=== PATIENT | female | born 1955 | race Caucasian/White ===

== ENCOUNTER → 2022-02-09 09:59 | Outpatient (BNVA) | payer MEDICARE, SELFPAY | PROVIDERS: PCP Family Medicine; Referring Provider Family Medicine; Visit Provider Anesthesiology Pain Medicine | DX: M51.16 Intervertebral disc disorders with radiculopathy, lumbar region (principal); M47.816 Spondylosis without myelopathy or radiculopathy, lumbar region; M79.604 Pain in right leg; M79.605 Pain in left leg; Z87.891 Personal history of nicotine dependence | CPT/HCPCS: 99204 ==

== ENCOUNTER → 2022-03-26 14:18 | Outpatient (BNVA) | payer MEDICARE, SELFPAY | PROVIDERS: PCP Family Medicine; Visit Provider Anesthesiology Pain Medicine | DX: M54.16 Radiculopathy, lumbar region (principal); Z87.891 Personal history of nicotine dependence | CPT/HCPCS: 64483; 64484; J1100; J3490 ==

== ENCOUNTER → 2022-04-15 09:05 | Outpatient (BNVA) | payer MEDICARE, SELFPAY | PROVIDERS: PCP Family Medicine; Visit Provider Anesthesiology Pain Medicine | DX: M47.816 Spondylosis without myelopathy or radiculopathy, lumbar region (principal); M51.16 Intervertebral disc disorders with radiculopathy, lumbar region; M79.604 Pain in right leg; M79.605 Pain in left leg; Z87.891 Personal history of nicotine dependence | CPT/HCPCS: 99213; 99214 ==

== ENCOUNTER → 2022-04-30 13:23 | Outpatient (BNVA) | payer MEDICARE, SELFPAY | PROVIDERS: PCP Family Medicine; Visit Provider Anesthesiology Pain Medicine | DX: Z87.891 Personal history of nicotine dependence (principal); M54.16 Radiculopathy, lumbar region | CPT/HCPCS: 64483; 64484; J1100; J3490 ==

== ENCOUNTER → 2022-08-12 13:19 | Outpatient (BNVA) | payer MEDICARE, SELFPAY | PROVIDERS: PCP Family Medicine; Visit Provider Anesthesiology Pain Medicine | DX: M47.816 Spondylosis without myelopathy or radiculopathy, lumbar region (principal); M51.16 Intervertebral disc disorders with radiculopathy, lumbar region; M79.604 Pain in right leg; M79.605 Pain in left leg; Z87.891 Personal history of nicotine dependence | CPT/HCPCS: 99214 ==

== ENCOUNTER → 2022-08-20 13:01 | Outpatient (BNVA) | payer MEDICARE, SELFPAY | PROVIDERS: PCP Family Medicine; Visit Provider Anesthesiology Pain Medicine | DX: M47.816 Spondylosis without myelopathy or radiculopathy, lumbar region (principal); Z87.891 Personal history of nicotine dependence | CPT/HCPCS: 64493; 64494; 64495; J3490 ==

== ENCOUNTER → 2022-09-10 13:42 | Outpatient (BNVA) | payer MEDICARE, SELFPAY | PROVIDERS: PCP Family Medicine; Visit Provider Anesthesiology Pain Medicine | DX: M47.816 Spondylosis without myelopathy or radiculopathy, lumbar region (principal); M51.16 Intervertebral disc disorders with radiculopathy, lumbar region; M79.604 Pain in right leg; M79.605 Pain in left leg | CPT/HCPCS: 99214 ==

== ENCOUNTER → 2022-09-15 12:45 | Outpatient (BNVA) | payer MEDICARE, SELFPAY | PROVIDERS: PCP Family Medicine; Visit Provider Anesthesiology Pain Medicine | DX: M47.816 Spondylosis without myelopathy or radiculopathy, lumbar region (principal) | CPT/HCPCS: 64635; 64636; J1030 ==

== ENCOUNTER → 2022-10-26 09:44 | Outpatient (BNVA) | payer MEDICARE, SELFPAY | PROVIDERS: PCP Family Medicine; Visit Provider Anesthesiology Pain Medicine | DX: M25.551 Pain in right hip (principal); M47.816 Spondylosis without myelopathy or radiculopathy, lumbar region; M51.16 Intervertebral disc disorders with radiculopathy, lumbar region | CPT/HCPCS: 73502; 99214 ==

== ENCOUNTER → 2022-11-26 08:58 | Outpatient (BNVA) | payer MEDICARE, SELFPAY | PROVIDERS: PCP Family Medicine; Visit Provider Anesthesiology Pain Medicine | DX: M16.0 Bilateral primary osteoarthritis of hip (principal); M47.816 Spondylosis without myelopathy or radiculopathy, lumbar region; M51.16 Intervertebral disc disorders with radiculopathy, lumbar region | CPT/HCPCS: 99214 ==

== ENCOUNTER → 2022-12-10 13:32 | Outpatient (BNVA) | payer MEDICARE, SELFPAY | PROVIDERS: PCP Family Medicine; Visit Provider Anesthesiology Pain Medicine | DX: M16.11 Unilateral primary osteoarthritis, right hip (principal); M54.9 Dorsalgia, unspecified | CPT/HCPCS: 20610; 77002; J1030; J3490 ==

== ENCOUNTER → 2022-12-30 10:36 | Outpatient (BNVA) | payer MEDICARE, SELFPAY | PROVIDERS: PCP Family Medicine; Referring Provider Anesthesiology Pain Medicine; Visit Provider Orthopaedic Surgery | DX: M16.11 Unilateral primary osteoarthritis, right hip (principal) | CPT/HCPCS: 99024 ==

== ENCOUNTER 2023-01-22 13:47 | Outpatient (CLI) | payer MEDICARE, SELFPAY | END 2023-01-22 13:48 | disposition home or self-care (01) | LOC: RT 02-10 13:49 | PROVIDERS: PCP Family Medicine; Visit Provider Orthopaedic Surgery | DX: Z01.818 Encounter for other preprocedural examination (principal) | CPT/HCPCS: 93005 ==

== ENCOUNTER → 2023-01-28 10:52 | Outpatient (BNVA) | payer MEDICARE, SELFPAY | PROVIDERS: PCP Family Medicine; Visit Provider Anesthesiology Pain Medicine | DX: Z01.818 Encounter for other preprocedural examination (principal); I44.4 Left anterior fascicular block; Z87.891 Personal history of nicotine dependence; M16.11 Unilateral primary osteoarthritis, right hip; M47.816 Spondylosis without myelopathy or radiculopathy, lumbar region; M51.16 Intervertebral disc disorders with radiculopathy, lumbar region | CPT/HCPCS: 99204; 99212 ==

== ENCOUNTER 2023-02-01 10:56 | Observation (INO) | payer MEDICARE, SELFPAY ==
--- NOTE | 2023-01-22 13:12 | ANES.PREANE2 ---
Pre-Anesthetic Assessment Height/Weight: Height 1.55 m Weight 78.925 kg Operation Date: 02/01/23 13:35 Proposed Procedures p right total hip arthroplasty/ 26232,M16.11(Right) - Hardik Garcias MD Familial anesthetic complications: None Social No alcohol and No tobacco Exam alert, oriented x 3, clear to auscultation bilaterally and regular rate & rhythm Airway Mallampati: Class II Dentition: other (bridge) CV/HEM Atrial Fibrillation (No longer on any medications for it (taken off over a year ago)) GI Hx colostomy d/t work accident Anesthetic Plan ASA status: 3 Risk of > 500 ml blood loss (7ml/kg in children): No Medications/Allergies Home Medications Medication Instructions Recorded Confirmed Last Taken Type acetaminophen 500 mg tablet 500 mg PO Q6H PRN Pain 02/09/22 01/22/23 01/21/23 History (Tylenol Extra Strength) baclofen 10 mg tablet 10 mg PO BID PRN spasm #60 tabs 04/30/22 01/22/23 Unknown Rx Allergies Allergy/AdvReac Type Severity Reaction Status Date / Time ciprofloxacin Allergy Severe ALGY-Anaphy Verified 01/22/23 12:55 laxis meperidine [From Demerol] Allergy Intermediate ADR-Nausea Verified 01/22/23 12:55 PFSH Anesthesia Family History Denies family history of CAD (coronary artery disease) Anesthesia complication Bleeding disorder Social History Smoking and tobacco status: former smoker Second hand smoke exposure: No Alcohol intake: never Substance/Drug Use: never Data Anesthesia Cardiac Studies: No Data to Display
--- NOTE | 2023-01-22 13:33 | ECG_ITS ---
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 Measurements Intervals [place] Rate: 92 P: 46 MT: 125 QRS: -65 QRSD: 113 T: 42 QT: 380 QTc: 472 Interpretive Statements SINUS RHYTHM PATTERN CONSISTENT WITH PULMONARY DISEASE LEFT ANTERIOR FASCICULAR BLOCK [QRS AXIS <= -45, QR IN I, RS IN II] VOLTAGE CRITERIA FOR LVH [MEETS CRITERIA IN ONE OF: R(aVL), S(V1), R(V5), R(V5/V6)+S(V1)] POSSIBLE SEPTAL MYOCARDIAL INFARCTION [30 ms Q WAVE IN V1/V2], OF INDETERMINATE AGE INTERPRETATION BASED ON A DEFAULT AGE OF 40 YEARS No previous ECG available for comparison Electronically Signed On 01-23-2023 10:06:14 CDT by Bang Moreno M.D. [id number]
[2023-01-22 13:42] LABS: Basophils % 0.4 %; Eosinophils # 0.1 10^3/uL (0.0-0.8); Eosinophils % 1.8 %; Hematocrit 42.2 % (37.0-47.0); Hemoglobin 13.6 g/dL (11.5-15.3); Lymphocytes # 2.2 10^3/uL (0.8-4.8); Lymphocytes % 40.3 %; Mean Corpuscular HGB Conc 32.2 g/dL (30.0-36.0); Mean Corpuscular Hemoglobin 31.6 pg (28.0-34.0); Mean Corpuscular Volume 97.9 fl (81-99); Mean Platelet Volume 9.3 fL (7.4-10.4); Monocytes # 0.5 10^3/uL (0.2-0.9); Monocytes % 9.8 %; Neutrophils # 2.61 10^3/uL (1.8-7.7); Neutrophils % 47.3 %; Nucleated Red Blood Cells % 0 %; Platelet Count 374 10^3/cmm (130-400); Red Blood Count 4.31 10^6/uL (4.1-5.3); Red Cell Distribution Width 12.9 % (12.1-15.1); White Blood Count 5.5 10^3/uL (4.0-10.0)
[2023-01-22 14:00] LABS: Alanine Aminotransferase 18 U/L (0-33); Albumin Level 4.1 g/dL (3.5-5.2); Alkaline Phosphatase 90 U/L (35-105); Anion Gap 14.1 (5-19); Aspartate Amino Transferase 18 U/L (0-32); Blood Urea Nitrogen 11 mg/dL (8-23); Calcium 8.3 mg/dL (8.5-10.5); Carbon Dioxide 23 mmol/L (22-29); Chloride 109 mmol/L (98-107); Globulin 3.7 g/dL (1.3-4.6); Glomerular Filtration Rate 99.1 mL/min (90-130); Glucose 89 mg/dL (65-115); Osmolality Calculated 293 mOsm/kg (285-295); Potassium 4.1 mmol/L (3.5-5.1); Sodium 142 mmol/L (136-145); Total Bilirubin 0.4 mg/dL (0.15-1.2); Total Protein 7.8 g/dL (6.6-8.7)
[2023-01-22 14:05] LABS: Add Urine Microscopic? YES; Bilirubin Urine Neg (Negative); Blood Urine 2+ (Negative); Glucose Urine UA Norm (Normal); Ketones Urine 1+ (Negative); Leukocyte Esterase Urine Negative (Negative); Nitrate Urine Negative (Negative); Protein Urine Neg (Negative); Urine Appearance SL Hazy (CLEAR); Urine Color Yellow (Yellow); Urobilinogen Urine 1 mg/dL (Negative); pH Urine 5 (5-7)
[2023-01-22 15:05] LABS: Add Urine Culture? No; Bacteria Urine 1+ /hpf; Mucus Urine 2+ /hpf; RBC Urine 0-4 /hpf (0-2); WBC Urine 0-4 /hpf (0-5)
[2023-02-01] VITALS (22 sets, daily range): BP systolic 120–169; BP diastolic 47–82; PULSE 59–95; RESP 16–18; TEMP 36.1–37.1; O2SAT 94–100; BMI 33.2
[2023-02-01] MEDS: sodium chloride 0.9% 1,000 ML 30 ML IV (07:57)
[2023-02-01] MEDS: gabapentin 300 mg Capsule PO ×2 (07:57→17:33)
[2023-02-01] MEDS: CELEcoxib 200 mg Capsule 400 MG PO (07:57)
[2023-02-01] MEDS: oxyCODONE 20 mg ER (12 HR) Tablet PO (07:57)
[2023-02-01] MEDS: acetaminophen 500 mg Tablet 1000 MG PO ×3 (07:58→22:50)
--- NOTE | 2023-02-01 08:23 | P.ANESUD_ITS ---
Pre-Anesthetic Update Pre-Anesthetic Assessment: Date of Surgery/Procedure: 02/01/23 Proposed Procedure: Operation Date: 02/01/23 09:35 Proposed Procedures p right total hip arthroplasty/ 29032,M16.11(Right) - Hardik Garcias MD Any changes to Pre-Anesthetic Assessment?: No Changes from Pre-Anesthetic Assessment: cardiology clearance received Last Intake: Intake Last Liquid Date 01/31/23 Last Liquid Time 19:00 Last Solid Date 01/31/23 Last Solid Time 19:00 Vitals: Temperature 97.5 F L 02/01/23 07:46 Temperature Source Temporal Artery S can 02/01/23 07:46 Pulse Rate 64 02/01/23 07:46 Respiratory Rate 18 02/01/23 07:57 Blood Pressure 169/82 02/01/23 07:46 Blood Pressure Kandace n 111 02/01/23 07:46 Pulse Oximetry 100 02/01/23 07:46 Oxygen Delivery Me thod Room Air 02/01/23 07:47 Exam: Pre-Anes Outpt Exam: alert, oriented x 3, clear to auscultation bila terally and regular rate & rhythm Cardiac Studies: No Data to Display
--- NOTE | 2023-02-01 09:13 | P.HP_ITS ---
Same Day Surgery H&P Indication for Procedure/HPI DATE OF PROCEDURE: February 01, 2023 CHIEF COMPLAINT/INDICATIONFOR SURGICAL PROCEDURE: Arthritis right hip here for right total hip arthroplasty PREOP DIAGNOSIS: Osteoarthritis right hip PLANNED PROCEDURE: Operation Date: 02/01/23 09:35 Proposed Procedures p right total hip arthroplasty/ 62946,M16.11(Right) - Hardik Garcias MD The patient is a 67-year-old female here for elective right total hip arthroplasty. She has pain with prolonged standing and walking. She has pain with bending over as well.? She states it is impossible to walk to a large grocery store.? She relies on a motorized cart while shopping..? Describes pain at night.? She did have a cortisone injection with Dr. Paris in her hip joint, which did not give her any mcfp relief, however pain free for up to 2 days.? She has tried medications including acetaminophen ibuprofen tramadol and hydrocodone without lasting improvement.? She describes history of lumbar surgery years ago and did well with that. Medications/Allergies* Home Medications Medication Instructions Recorded Confirmed Type No Known Home Medications 01/26/23 01/28/23 History Allergies/Adverse Reactions Allergy/AdvReac Type Severity Reaction Status Date / Time ciprofloxacin Allergy Severe ALGY-Anaphy Verified 02/01/23 07:43 laxis meperidine [From Demerol] Allergy Intermediate ADR-Nausea Verified 02/01/23 07:43 Current Medications: Generic Name Dose Route Start Last Admin Trade Name Freq PRN Reason Stop Dose Admin Sodium Chloride 1,000 mls @ 30 mls/hr 02/01/23 07:45 02/01/23 07:57 Sodium Chloride 0.9% IV 02/02/23 07:44 30 mls/hr .Q24H JA Administration Pertinent History/Comorbid Conditions* Surgical History (Updated 01/26/23 @ 14:35 by Brittany Cronin MD) History of partial colectomy History of total left knee replacement (TKR) Family History (Updated 04/15/22 @ 09:16 by Coco Mendez) Denies family history of CAD (coronary artery disease) Anesthesia complication Bleeding disorder Social History Smoking and tobacco status: former smoker Quit status (tobacco): has quit using tobacco Year quit tobacco: 1999 Second hand smoke exposure: No Alcohol intake: never Substance/Drug Use: never Pertinent Exam Findings alert, oriented x 3, clear to auscultation bilaterally and regular rate & rhythm HIP, [right] No tenderness right hip RANGE OF MOTION:? EXAMINED HIP ? Flexion: 90 ? Extrenal Rotation: 30 ? Internal Rotation: Neutral ? Pain with extremes of motion ? ? ? CONTRALATERAL HIP ? Flexion: 90 ? Extrenal Rotation: 40 ? Internal Rotation: 20 MOTOR: Strong quadriceps hamstrings tibialis anterior and extensor houses longus strength SENSATION: Intact to light touch Recommendations Surgery/Procedure today Coding Level of Care Code Acute Code for Chg Fwd Diagnoses
[2023-02-01] MEDS: ceFAZolin 2,000 MG in sodium chloride 0.9% (plus) 50 ML 100 MG IV ×2 (09:37→17:36)
[2023-02-01] MEDS: tranexamic acid 1,000 mg/10mL SDV 1000 MG IV (10:06)
[2023-02-01] MEDS: sodium chloride 0.9% 100 mL Bag XX (10:10)
--- NOTE | 2023-02-01 11:19 | PM.OP ---
Operative Report Date of procedure: February 01, 2023 Pre-op diagnosis: Preop Diagnosis Osteoarthritis right hip Post-op diagnosis: same Post-op diagnosis: Same Procedure done: Right total hip arthroplasty Implants: 1) Nori 48 mm Trident 2 solid back acetabular shell 2) Size 4 [place] 127 degree neck angle Accolade 2 stem 3} 28mm standard standard ceramic femoral head 4} size D MDM metal liner Pathology: none sent Surgeon: Hardik Garcias Supervisor Propellant Charge Loading: Jon Alvarez Supervisor Propellant Charge Loading: The nurse practitioner assisted with critical portions of the case including positioning, exposure, implantation of components, closure, and postoperative abduction pillow application. Estimated blood loss (mL): 100 Complications: None Findings: Patient eburnated bone about the femoral head and peripheral osteophytes Condition: stable Disposition: PACU Brief History: See admission history and physical Procedure: The patient was taken to the operating room and anesthesia provided by the anesthesia service. The patient was placed in the lateral position on a pegboard. A timeout was performed. The patient was draped in the usual fashion. A 15 cm long incision was made beginning just proximal to the greater trochanter and extending posteriorly to a point just distal to the trochanter on the posterior border of the trochanter. Dissection was carried down with electrocautery through the subcutaneous fat to the fascia neelam which was divided proximally and distally with curved scissors. The anterior two thirds of the gluteus medius and minimus were elevated off the hip with electrocautery. The capsule was divided in a H-like fashion. The hip was dislocated and a neck cut made just above the level of the lesser trochanter. Exposure of the acetabulum was facilitated with the acetabular retractors. Remnants of labrum and peripheral osteophytes were removed with electrocautery and a rongeur. A reamer 2 mm under the size the femoral head was utilized to ream medially to the base of the palm and are. Reaming was then increased in 1 mm intervals until a healthy rim a trabecular bone was encountered. The rim was touched with the reamer the size of the final acetabular shell to be placed. A final Trident 2 acetabular cup of the same size as the final reaming was press-fit into place. The ADM liner was secured. Attention was then focused on the femur. The canal was localized with a canal finder. Broaching was then accomplished until a stable broach size was obtained. A trial reduction with the head and neck provided excellent stability. The wound was irrigated with saline and antibiotic solution. The final Nori Accolade II stem was press-fit into place. The femoral head was placed and the hip was reduced. The hip was brought through range of motion and found to be free of impingement and stable. The anterior capsule was reapproximated with 1 Ethibond. The gluteus medius and minimus were repaired through bone with 5 Ethibond and reinforced with 1 Ethibond. The fascial neelam was closed with a running 0 Stratafix suture. Deep pelvic tissues were closed with 2-0 Stratafix and the skin with a running 4-0 l Stratafix. The skin was covered with a Prineo dressing and op site dressings.
--- NOTE | 2023-02-01 11:24 | XR_ITS ---
WS: [id number] XR hip RT 1V wo/w pel [id number] REASON FOR EXAM: Total hip arthroplasty FINDINGS: Total right hip arthroplasty. Prosthetic components are in proper position and alignment and intact. No focal bone abnormality. XR/XR hip RT 1V wo/w pel [id number] IMPRESSION: Total right hip arthroplasty without abnormality.
[2023-02-01] MEDS: sodium chloride 0.9% 1,000 ML 100 ML IV (12:30)
[2023-02-01] MEDS: morphine 4 mg/mL SDV 1 mL 2 MG IVP ×3 (12:30→19:44)
--- NOTE | 2023-02-01 13:10 | ANE.PACU2 ---
Inpatient post-anesthesia follow up: Airway intact: Yes Vital signs: Temperature 97 F Pulse Rate 64 Respiratory Rate 16 Blood Pressure 153/56 Pulse Oximetry 94 Oxygen Delivery Me thod Room Air Oxygen Flow Rate Fraction of Inspir ed Oxygen Hydration adequate: Yes Nausea and vomiting: No Pain level: 1 Mental status: Baseline
[2023-02-01] MEDS: oxyCODONE 5 mg IR Tab/Cap PO ×2 (13:37→17:41)
[2023-02-01] MEDS: sennosides-docusate Tablet 2 TAB PO (17:34)
[2023-02-01] MEDS: CELEcoxib 200 mg Capsule PO (20:28)
[2023-02-01] MEDS: hyDROXYzine 25 mg Capsule PO (22:50)
[2023-02-02] VITALS: BP 133/77; PULSE 73; RESP 16; TEMP 37; O2SAT 95
[2023-02-02] MEDS: sodium chloride 0.9% 1,000 ML 100 ML IV (00:57)
[2023-02-02] MEDS: ceFAZolin 2,000 MG in sodium chloride 0.9% (plus) 50 ML 100 MG IV ×2 (00:58→08:37)
[2023-02-02 00:59] VITALS: RESP 18; O2SAT 96
[2023-02-02] MEDS: oxyCODONE 5 mg IR Tab/Cap PO ×3 (00:59→10:44)
[2023-02-02 04:44] LABS: Hemoglobin 11.4 g/dL (11.5-15.3)
[2023-02-02 06:30] VITALS: RESP 18; O2SAT 96
[2023-02-02 07:41] VITALS: BP 134/74; PULSE 63; RESP 16; TEMP 36.4
[2023-02-02] MEDS: acetaminophen 500 mg Tablet 1000 MG PO (08:35)
[2023-02-02] MEDS: aspirin 325 mg EC Tablet PO (08:36)
[2023-02-02] MEDS: sennosides-docusate Tablet 2 TAB PO (08:36)
[2023-02-02] MEDS: gabapentin 300 mg Capsule PO (08:37)
[2023-02-02] MEDS: CELEcoxib 200 mg Capsule PO (08:37)
--- NOTE | 2023-02-02 09:33 | PC.CHAP ---
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 [] Patient/Family/Request visit [] Outpatient visit [] Follow-up visit [] Physician referral [] Code/Alert [x] Routine visit [] Staff referral [] Actively dying [] Patient sleeping [x] Family support [] [] Out of room [] Palliative care [] [] Receiving care in room [] Pre-surgical visit [] Trauma [] Long length of stay [] ICU visit [] Other: Relational/Emotional Strength [x] Patient feels connected with others/family/visitors/staff [] Distress [] Loneliness/isolation [] Abandonment Spirituality of Patient [x] Person of Irene [] Attends Zoroastrianism of their Irene [x] Believes in Prayer [] Reads Bible or Rastafarian materials [] There are 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 [x] Prayer [x] Active listening [] Non-anxious presence [x] Spiritual/emotional support [] Crisis/trauma care [] Spiritual counseling [] Bereavement support [] Provided bereavement packet [] Provided Bible/devotional materials [] Provided toy/stuffed animal, coloring book to patient or family member [] Provided Communion [] Anointing/Riddle [] Salvation [x] Completed spiritual assessment [] Other: Impact on Illness or Injury [] Angry [] Fearful [] Anxious [] Often cries [] Exhaustion [] Unable to work [] Unable to attend pentecostalism [] Unable to walk/stand [] Unable to read [] Unable to drive [] Unable to eat/drink [] Unable to sleep [] Unable to be with family [] Patient intubated [] Other: Summary Time spent with patient 5 min
[2023-02-02 10:44] VITALS: RESP 17
[2023-02-02 11:04] VITALS: RESP 17
--- NOTE | 2023-02-02 12:41 | P.DS_ITS ---
Discharge Providers Date of Admission: 02/01/23 10:56 Date of Discharge: February 02, 2023 Attending Provider at Admission: Hardik Restrepo MD Attending Provider at Discharge: Hardik Restrepo MD Primary Care Provider: Christiano Matute MD Reason for Visit Reason for Visit: M16.11 Brief History: The patient is a 67-year-old female with progressive right hip pain unresponsive to medications. Radiographs reveal degenerative changes of the hip and she had a good but temporary improvement with corticosteroid injections. As she has significant functional limitations and pain she was to proceed with total knee arthroplasty Hospital Course Hospital Course The patient tolerated surgery well. They remained hemodynamically stable. They was begun on aspirin and sequential compression dressing for DVT prophylaxis. The patient was mobilized with therapy beginning the day of surgery and by the first postoperative day independent with the walker. As the pain was adequately controlled and they were fully mobile they were discharged home. Physical Exam Narrative: On the day of discharge the hip incision was clean. The incision was free of drainage. They had no particular swelling about the thigh or distal. No distal neurovascular deficits were noted. Discharge Data Studies Completed and Pending Completed Studies During Hospitalization Category Date Time Status XR hip RT 1V wo/[place] pel [id number] Routine Exams 02/01/23 11:24 Completed Radiology Impressions Hip X-Ray 02/01/23 11:24 IMPRESSION: Total right hip arthroplasty without abnormality. Laboratory Results WBC 5.5 10^3/uL (4.0-10.0) 01/22/23 13:20 RBC 4.31 10^6/uL (4.1-5.3) 01/22/23 13:20 Hgb 11.4 g/dL (11.5-15.3) L 02/02/23 04:18 Hct 42.2 % (37.0-47.0) 01/22/23 13:20 MCV 97.9 fl (81-99) 01/22/23 13:20 MCH 31.6 pg (28.0-34.0) 01/22/23 13:20 MCHC 32.2 g/dL (30.0-36.0) 01/22/23 13:20 RDW 12.9 % (12.1-15.1) 01/22/23 13:20 Plt Count 374 10^3/cmm (130-400) 01/22/23 13:20 MPV 9.3 fL (7.4-10.4) 01/22/23 13:20 Neut % (Auto) 47.3 % 01/22/23 13:20 Lymph % (Auto) 40.3 % 01/22/23 13:20 [place] % (Auto) 9.8 % 01/22/23 13:20 Eos % (Auto) 1.8 % 01/22/23 13:20 Baso % (Auto) 0.4 % 01/22/23 13:20 Neut # (Auto) 2.61 10^3/uL (1.8-7.7) 01/22/23 13:20 Lymph # (Auto) 2.2 10^3/uL (0.8-4.8) 01/22/23 13:20 [place] # (Auto) 0.5 10^3/uL (0.2-0.9) 01/22/23 13:20 Eos # (Auto) 0.1 10^3/uL (0.0-0.8) 01/22/23 13:20 Baso # (Auto) 0.0 10^3/uL (0.0-0.1) 01/22/23 13:20 Nucleated RBC % (auto) 0 % 01/22/23 13:20 Nucleated RBCs # 0.0 /100WBC 01/22/23 13:20 Sodium 142 mmol/L (136-145) 01/22/23 13:20 Potassium 4.1 mmol/L (3.5-5.1) 01/22/23 13:20 Chloride 109 mmol/L (98-107) H 01/22/23 13:20 Carbon Dioxide 23 mmol/L (22-29) 01/22/23 13:20 Anion Gap 14.1 (5-19) 01/22/23 13:20 BUN 11 mg/dL (8-23) 01/22/23 13:20 Creatinine 0.6 mg/dL (0.5-0.9) 01/22/23 13:20 GFR Calculation 99.1 mL/min (90-130) 01/22/23 13:20 Glucose 89 mg/dL (65-115) 01/22/23 13:20 Calculated Osmolality 293 mOsm/kg (285-295) 01/22/23 13:20 Calcium 8.3 mg/dL (8.5-10.5) L 01/22/23 13:20 Total Bilirubin 0.4 mg/dL (0.15-1.2) 01/22/23 13:20 AST 18 U/L (0-32) 01/22/23 13:20 ALT 18 U/L (0-33) 01/22/23 13:20 Alkaline Phosphatase 90 U/L (35-105) 01/22/23 13:20 Total Protein 7.8 g/dL (6.6-8.7) 01/22/23 13:20 Albumin 4.1 g/dL (3.5-5.2) 01/22/23 13:20 Globulin 3.7 g/dL (1.3-4.6) 01/22/23 13:20 Urine Color Yellow (Yellow) 01/22/23 13:20 Urine Appearance Sl hazy (CLEAR) A 01/22/23 13:20 Urine pH 5 (5-7) 01/22/23 13:20 Ur Specific [place] 1.030 (1.005-1.030) 01/22/23 13:20 Urine Protein Neg (Negative) 01/22/23 13:20 Urine Glucose (UA) Norm (Normal) 01/22/23 13:20 Urine Ketones 1+ (Negative) H 01/22/23 13:20 Urine Blood 2+ (Negative) H 01/22/23 13:20 Urine Nitrate Negative (Negative) 01/22/23 13:20 Urine Bilirubin Neg (Negative) 01/22/23 13:20 Urine Urobilinogen 1 mg/dL (Negative) H 01/22/23 13:20 Ur Leukocyte Esterase Negative (Negative) 01/22/23 13:20 Urine RBC 0-4 /hpf (0-2) H 01/22/23 13:20 Urine WBC 0-4 /hpf (0-5) H 01/22/23 13:20 Ur Squamous Epith Cells 5-10 /hpf (0-5) H 01/22/23 13:20 Amorphous Sediment Not Reportable 01/22/23 13:20 Urine Bacteria 1+ /hpf (NONE) H 01/22/23 13:20 Urine Mucus 2+ /hpf 01/22/23 13:20 Vitals Last Vital Signs Temp 97.5 F L 02/02/23 07:41 Pulse 63 02/02/23 07:41 Resp 17 02/02/23 11:04 BP 134/74 02/02/23 07:41 Pulse Ox 96 02/02/23 06:30 O2 Del Method Room Air 02/01/23 20:33 Discharge Plan Discharge Patient Disposition: Home Condition: Stable Prescriptions: New acetaminophen 500 mg Tablet 1,000 mg PO Q8H 14 Days Qty: 84 0RF aspirin 325 mg Tablet,Delayed Release (Dr/Ec) 325 mg PO DAILY 30 Days Qty: 30 0RF celecoxib 200 mg Capsule 200 mg PO Q12H 14 Days Qty: 28 0RF gabapentin 300 mg Capsule 300 mg PO BID 7 Days Qty: 14 0RF oxycodone 5 mg Tablet 5 mg PO Q4H PRN (Reason: Moderate Pain) 7 Days Qty: 30 0RF Discharge Orders: Discharge Order (Routine); Ordered 02/02/23 Ordered By: Hardik Restrepo Other Ambulatory Orders: DME: Shower Chair (Order) Location: None Selected Ordered By: Hardik Restrepo DME: Walker (Order) Location: None Selected Ordered By: Hardik Restrepo Physical Therapy Eval and Treat Outpatient (Order) Timeframe: 3 Days Facility: [facility] - Location: Physical Therapy [facility] Ordered By: Hardik Restrepo Referrals: Hardik Restrepo MD [Physician] - 02/16/23 8:15 am Discharge Diet: Advance as tolerated Discharge Activity: Limit activity as instructed Patient Instructions: Aspirin (By mouth), Gabapentin (By mouth), Oxycodone, Rapid Release (By mouth) (ETH-Oxydose, Oxy IR,..., Celecoxib (By mouth), Precautions after Total Joint Replacement Surgery (GEN), Total Hip Replacement (GEN), Joint Replacement Stoplight, Opioid Safety Activity Restrictions/Additional Instructions: Okay to shower. No soaking incision in tub Apply FirstIce up to 20 min/hr for pain and swelling Take Celebrex twice a day for the next 15 days for pain , discontinue other anti-inflammatories Take Neurontin twice a day for 7 days. Take Tylenol 500mg (up to 2 tabs) 3 times a day for mild pain Take oxycodone for breakthrough pain. Exercises per physical therapy. May weight-bear as tolerated on total hip arthroplasty IF HAVE ANY PROBLEMS OR QUESTIONS CALL HOSPITAL HISTOPATHOLOGY TECHNICIAN AT AND ASK TO HAVE DR. RESTREPO PAGED. Discharge Attestations Time Spent in Discharge Care*: other Quality Metrics Clinical Quality Measures [ No reported AMI, CVA or VTE this stay] Coding Level of Care Code Acute Code for Chg Fwd Diagnoses
== END 2023-02-02 11:51 | disposition home or self-care (01) ==
LOC: MEDSURG 12:10
PROVIDERS: Admitting Provider Orthopaedic Surgery; PCP Family Medicine; Visit Provider Orthopaedic Surgery
PROC: (CPT 27130; principal; 2023-02-01 09:35)
DX: M16.11 Unilateral primary osteoarthritis, right hip (principal); I44.4 Left anterior fascicular block; Z87.891 Personal history of nicotine dependence; Z88.1 Allergy status to other antibiotic agents
CPT/HCPCS: 27130; 36415; 73501; 80053; 81001; 85018; 85025; 97116; 97161; 97165; 97530; C1776; G0378; J0690; J1100; J1170; J1580; J2270; J2405; J2704; J2710; J3010; J3490; J7030

== ENCOUNTER → 2023-02-17 14:48 | Outpatient (BNVA) | payer MEDICARE, SELFPAY | PROVIDERS: PCP Family Medicine; Visit Provider Orthopaedic Surgery | DX: Z96.641 Presence of right artificial hip joint (principal) | CPT/HCPCS: 99024 ==

== ENCOUNTER → 2023-03-10 14:29 | Outpatient (BNVA) | payer MEDICARE, SELFPAY | PROVIDERS: PCP Family Medicine; Visit Provider Nurse Practitioner Family | DX: I44.4 Left anterior fascicular block (principal); I97.89 Other postprocedural complications and disorders of the circulatory system, not elsewhere classified; I48.91 Unspecified atrial fibrillation; I45.9 Conduction disorder, unspecified; Z87.891 Personal history of nicotine dependence | CPT/HCPCS: 93005; 99214 ==

== ENCOUNTER → 2023-03-17 14:25 | Outpatient (BNVA) | payer MEDICARE, SELFPAY | PROVIDERS: PCP Family Medicine; Visit Provider Orthopaedic Surgery | DX: Z96.641 Presence of right artificial hip joint (principal) | CPT/HCPCS: 73502; 99024 ==